=== PATIENT | female | born 1995 | race Caucasian/White ===

== ENCOUNTER 2018-07-13 12:42 | Emergency (ER) | payer MEDICAID ==
[2018-07-13 15:46] VITALS: BP 127/75
--- NOTE | 2018-07-13 16:46 | ED ---
Complex/Multi-Sys Presentation - HPI Summary HPI Summary: Patient is a 23 y/o F presenting to ED wanting medication for anxiety. She states that she moved to [place] three weeks ago from the [place] and is out of her anxiety medication. She reports that she used to be on lorazepam, now sertraline as lorazepam did not work. She states that she went to the [facility] and has an appointment in a month but cannot wait that long. PMHx of depression and anxiety. She states her PCP from [place] is unwilling to call in a prescription and that she cannot go back to the [place]. She states she tried to find another health center but reports the wait list is until September. On triage, pain is denied, medication is noted to alleviate Sx, nothing is reported to aggravate. Home medications and allergies are reviewed. Denies any SI, HI, visual or auditory hallucinations - History Of Current Complaint Chief Complaint: EDPsychosocial Time Seen by Provider: 07/13/18 13:16 Hx Obtained From: Patient Onset/Duration: Still Present Timing: Constant Severity Currently: None - pain denied Aggravating Factor(s): nothing Alleviating Factor(s): medications Associated Signs And Symptoms: Positive: Vomiting, Other - on triage, patient reports anxiety, vomiting, and tremors without her medications - Allergies/Home Medications Allergies/Adverse Reactions: Allergies Allergy/AdvReac Type Severity Reaction Status Date / Time No Known Allergies Allergy Verified 07/13/18 12:59 PMH/Surg Hx/FS Hx/Imm Hx Sensory History: Denies: Hx Legally Blind Opthamlomology History: Denies: Hx Legally Blind Psychiatric History: Reports: Hx Anxiety, Hx Depression Infectious Disease History: No Infectious Disease History: Denies: Traveled Outside the [place] in Last 30 Days - Family History Known Family History: Positive: Respiratory Disease - asthma - Social History Alcohol Use: None Substance Use Type: Reports: None Smoking Status (MU): Never Smoked Tobacco Review of Systems Positive: Other - tremors Positive: Vomiting Positive: Anxious All Other Systems Reviewed And Are Negative: Yes Physical Exam - Summary Physical Exam Summary: GENERAL: Patient is a well-developed and nourished female who is lying comfortable in the stretcher. Patient is not in any acute respiratory distress. HEAD AND FACE: Normocephalic EYES: PERRLA, EOMI x 2. EARS: Hearing grossly intact. MOUTH: Oropharynx within normal limits. NECK: Supple, trachea is midline, no adenopathy, no JVD, no carotid bruit. CHEST: Symmetric, no tenderness at palpation LUNGS: Clear to auscultation bilaterally. No wheezing or crackles. CVS: Regular rate and rhythm, S1 and S2 present, no murmurs or gallops appreciated. ABDOMEN: Soft, non-tender. Bowel sounds are normal. No abdominal abnormal pulsations. EXTREMITIES: Full ROM in all major joints, no edema, no cyanosis or clubbing. NEURO: Alert and oriented x 3. No acute neurological deficits. Speech is normal and follows commands. SKIN: Dry and warm Psych: No SI or HI, visual or auditory hallucinations, linear thought process and content Triage Information Reviewed: Yes Vital Signs On Initial Exam: Initial Vitals Temp Pulse Resp BP Pulse Ox 98.2 F 75 18 117/67 100 07/13/18 12:56 07/13/18 12:56 07/13/18 12:56 07/13/18 12:56 07/13/18 12:56 Vital Signs Reviewed: Yes Diagnostics - Vital Signs Vital Signs Temp Pulse Resp BP Pulse Ox 07/13/18 15:32 98.1 F 64 16 127/75 98 07/13/18 12:56 98.2 F 75 18 117/67 100 - Laboratory Lab Statement: Any lab studies that have been ordered have been reviewed, and results considered in the medical decision making process. Re-Evaluation - Re-Evaluation First Eval Re-Evaluation Time: 15:20 Comment: 1520 ED provider is uncomfortable with refilling patients anxiety medication, will be discharged to home and is advised to follow up with care clinic connections of [facility]. Nurse Ceferino Quinteros had called [facility] asking to see if patients appointment could be pushed up earlier. They report that patient and patients daughter were not in the system and did not have an appointment. Patient became uncooperative and wanted provider to write her a letter stating that she is unwilling to prescribe her psych meds. The providers unease with prescribing psych meds for one month was restated as well. However, patient is still unwilling to listen to explanation. Patient was provided with Joan Duarte number and email to provide a complaint if so desired. She was also given follow up instructions for [facility] which has openings this coming monday of which the patient was informed. Patient left at 1540. Complex Multi-Symp Course/Dx Course Of Treatment: Patient is a 23 y/o F presenting to ED wanting medication for anxiety. She states that she moved to [place] three weeks ago from the [place] and is out of her anxiety medication. She reports that she used to be on lorazepam, now sertraline as lorazepam did not work. She states that she went to the [facility] and has an appointment in a month but cannot wait that long. PMHx of depression and anxiety. She states her PCP from [place] is unwilling to call in a prescription and that she cannot go back to the [place]. She states she tried to find another health center but reports the wait list is until September. Physical exam was unremarkable. 1520 ED provider is uncomfortable with refilling patients anxiety medication, will be discharged to home and is advised to follow up with [facility] on Monday because there are openings. Nurse Ceferino Quinteros had called [facility] asking to see if patients appointment could be pushed up earlier. They report that patient and patients daughter were not in the system and she did not have an appointment. Patient became uncooperative and wanted provider to write her a letter stating that she is unwilling to prescribe her psych meds. The providers unease with prescribing psych meds for one month was restated as well. However, patient is still unwilling to listen to explanation. Patient was provided with Joan Duarte number and email to provide a complaint if so desired. She was also given follow up instructions for [facility]. She is hemodynamically stable and safe for discharge. Strict return precautions given as well. Patient left at 1540. Dx of psychosocial problem. - Diagnoses Provider Diagnoses: Psychosocial problem Discharge - Sign-Out/Discharge Documenting (check all that apply): Patient Departure - discharge - Discharge Plan Condition: Stable Disposition: HOME Patient Education Materials: Anxiety (ED) Referrals: [facility] [Outside] - 3 Days [facility] [Outside] Additional Instructions: Follow up with [facility] in 1-3 days. [facility] has open intake for adults Monday - 9:00 AM -3 : 30 PM and Monday 10:00 AM - 2:30 PM RETURN TO THE EMERGENCY DEPARTMENT FOR CHANGING OR WORSENING SYMPTOMS. - Billing Disposition and Condition Condition: STABLE Disposition: Home - Attestation Statements Document Initiated by Scribe: Yes Documenting Scribe: Pancho Martin Provider For Whom Jonatan is Documenting (Include Credential): Fidel Mustafa MD Scribe Attestation: Pancho Dawkins , scribed for Fidel Mustafa MD on 07/13/18 at 2105. Scribe Documentation Reviewed: Yes Provider Attestation: The documentation as recorded by the Pancho allen accurately reflects the service I personally performed and the decisions made by me, Fidel Mustafa MD
== END 2018-07-13 15:32 | disposition home or self-care (01) ==
LOC: ED 12:42
DX: R11.10 Vomiting, unspecified (principal); F41.9 Anxiety disorder, unspecified; Z65.9 Problem related to unspecified psychosocial circumstances
CPT/HCPCS: 99281

== ENCOUNTER → 2018-12-13 18:14 | Emergency (ER) | payer MEDICAID, OTHER ==
[~2018-12-13 18:14] MED LIST: Dexamethasone TAB* 4 MG PO ONE; Famotidine TAB* 20 MG PO ONE; diPHENhydraMINE PO* 50 MG PO ONE
--- NOTE | 2018-12-13 18:31 | ED ---
Complex/Multi-Sys Presentation - HPI Summary HPI Summary: Patient is a 23 y/o female brought in by EMS who presents to the ED c/o burning sensation. 3 days ago she began to have a burning and stinging sensation to her upper buttocks. Since then the sensation has radiated to her LLE, left arm, and left back. The sensation is now migrating to the right side. Patient denies any fever, drainage, rash, N/V/D, dysuria, or hematuria. She denies any pain. A few days ago she saw lights in her vision. Patient states that she feels like the sensation is inside. She has taken Allergra without relief. Patient notes she was recently started on Metyrapone for anxiety. She denies using any topical medications or herbal supplements. Patient denies any DM or HTN. - History Of Current Complaint Time Seen by Provider: 12/13/18 18:16 Hx Obtained From: Patient Onset/Duration: Gradual Onset, Lasting Days - 3, Worse Since Timing: Constant Location: Radiates To: - buttocks to legs, arms, back Aggravating Factor(s): Nothing Alleviating Factor(s): Nothing Associated Signs And Symptoms: Negative: Nausea, Vomiting, Diarrhea, Fever - Allergies/Home Medications Allergies/Adverse Reactions: Allergies Allergy/AdvReac Type Severity Reaction Status Date / Time No Known Allergies Allergy Verified 12/13/18 18:26 PMH/Surg Hx/FS Hx/Imm Hx Endocrine/Hematology History: Denies: Hx Diabetes, Hx Thyroid Disease Cardiovascular History: Denies: Hx Hypertension - Surgical History Surgery Procedure, Year, and Place: sleeve gastrectomy Infectious Disease History: No Infectious Disease History: Denies: Traveled Outside the [place] in Last 30 Days - Family History Known Family History: Positive: Cardiac Disease, Diabetes, Respiratory Disease - asthma , Other - FMHx of [place] - Social History Alcohol Use: Occasionally Hx Substance Use: No Substance Use Type: Reports: None Hx Tobacco Use: No Smoking Status (MU): Never Smoked Tobacco Review of Systems Negative: Fever Positive: Other - lights in her vision Negative: Vomiting, Diarrhea, Nausea Negative: dysuria, hematuria Negative: Rash, Other - drainage Neurological: Other - burning/stinging sensation buttocks, legs, arms, back All Other Systems Reviewed And Are Negative: Yes Physical Exam - Summary Physical Exam Summary: Appearance: Well appearing, no pain distress Skin: warm, dry, reflects adequate perfusion, hyperesthesia on left side Head/face: normal Eyes: EOMI, GLO ENT: mucous membranes moist Neck: supple, non-tender Respiratory: CTA, breath sounds present Cardiovascular: RRR, pulses symmetrical Abdomen: non-tender, soft Bowel Sounds: present Musculoskeletal: normal, strength/ROM intact Neuro: normal, sensory motor intact, A&Ox3 Triage Information Reviewed: Yes Vital Signs On Initial Exam: Initial Vitals Temp Pulse Resp BP Pulse Ox 97.8 F 70 16 137/85 100 12/13/18 18:18 12/13/18 18:18 12/13/18 18:18 12/13/18 18:18 12/13/18 18:18 Vital Signs Reviewed: Yes Diagnostics - Vital Signs Vital Signs Temp Pulse Resp BP Pulse Ox 12/13/18 18:18 97.8 F 70 16 137/85 100 - Laboratory Result Diagrams: 12/13/18 19:00 12/13/18 19:00 Lab Statement: Any lab studies that have been ordered have been reviewed, and results considered in the medical decision making process. Re-Evaluation - Re-Evaluation First Eval Re-Evaluation Time: 18:40 Change: Unchanged Comment: Pt told nurse Leilani she is actually taking Sertraline instead of Metyrapone. Second Eval Re-Evaluation Time: 19:30 Change: Unchanged Comment: Pt feels the same. She states she had fillers injected in her buttocks. Complex Multi-Symp Course/Dx Course Of Treatment: Nurse's notes reviewed. Patient with a burning hyperesthesia of the entire left side of her body now crossing midline and involving portions of the back of her right side. She is not on any new medications and has no rheumatologic conditions. She is not known to have any complex regional pain syndromes or fibromyalgia. She is very benign appearing with no findings on exam otherwise. She is neurologically intact. Laboratories are all benign. She was given steroids, Benadryl and Pepcid here without any improvement. She'll follow up closely with her primary care physician. - Diagnoses Differential Diagnoses/HQI/PQRI: Metabolic Abnormality, Other - Complex regional pain syndrome, rheumatologic condition, medication reaction to Zoloft Provider Diagnoses: Hyperesthesia Discharge - Sign-Out/Discharge Documenting (check all that apply): Patient Departure - Discharge Patient Received Moderate/Deep Sedation with Procedure: No - Discharge Plan Condition: Improved Disposition: HOME Prescriptions: Dexamethasone TAB* [Decadron TAB*] 8 mg PO DAILY #8 tab Patient Education Materials: Paresthesia (ED) Referrals: Arianna Brooke DO [Primary Care Provider] - Additional Instructions: HOLD your next dose of sertraline/Zoloft. This may be causing her symptoms. Otherwise, there is possibility of rheumatologic condition that can be worked up by your doctor. Return if worse, new symptoms or other concerns as discussed. - Billing Disposition and Condition Condition: IMPROVED Disposition: Home - Attestation Statements Document Initiated by Jonatan: Yes Documenting Scribe: Sana Cooper Provider For Whom Jonatan is Documenting (Include Credential): Eric Gutierres MD Scribe Attestation: Sana Dawkins, scribed for Eric Gutierres MD on 12/13/18 at 2125. Scribe Documentation Reviewed: Yes Provider Attestation: The documentation as recorded by the Sana allen accurately reflects the service I personally performed and the decisions made by Eric bravo MD Status of Scribe Document: Viewed
[2018-12-13 19:07] LABS: ABS Basophils 0 10^3/ul (0-0.2); ABS Eosinophils 0.1 10^3/ul (0-0.6); ABS Lymphocytes 2.3 10^3/ul (1.0-4.8); ABS Monocytes 0.4 10^3/ul (0-0.8); ABS Neutrophils 3.8 10^3/ul (1.5-7.7); ABS Nucleated RBC 0 10^3/ul; Eosinophil % 2.1 %; Hematocrit 33 % (33-41); Hemoglobin 11.5 g/dL (12.0-16.0); Lymphocyte % 34.6 %; Mean Corpuscular HGB Conc 34 g/dL (31-36); Mean Corpuscular Hemoglobin 30 pg (27-31); Mean Corpuscular Volume 86 fL (80-97); Mean Platelet Volume 7.7 fL (7.4-10.4); Nucleated Red Blood Cells % 0; Platelet Count 210 10^3/uL (150-450); Red Cell Distribution Width 13 % (10.5-15); White Blood Count 6.7 10^3/uL (3.5-10.8)
[2018-12-13 19:21] LABS: BUN/Creatinine Ratio 11.1 (8-20); C Reactive Protein 1.12 mg/L (<8.01); Calcium 8.9 mg/dL (8.6-10.3); EGFR African American 121.5 (>60); EGFR Non-African American 100.4 (>60); Potassium 3.9 mmol/L (3.5-5.0)
[2018-12-13 19:44] VITALS: BP 125/78
== END | disposition home or self-care (01) ==
LOC: MERGE 18:14 → ED 18:14
DX: R20.3 Hyperesthesia (principal)
CPT/HCPCS: 36415; 80048; 82550; 85025; 86140; 99283; A9270-GY; J8540

== ENCOUNTER 2018-12-15 21:16 | Emergency (ER) | payer MEDICAID, OTHER ==
--- NOTE | 2018-12-15 21:51 | ED ---
Complex/Multi-Sys Presentation - HPI Summary HPI Summary: This patient is a 23 year old F presenting to [facility] with a chief complaint of a burning sensation over the left side of her body for the past two days with mild swelling of her left arm today. Patient reports being seen in the ED yesterday and was given a prescription for steroids and antihistamines. Reports headaches for the past 2 days . Denies fever, chest pain, SOB, GI and urinary symptoms. LN end of October early November; patient reports irregularity and is not concerned for . - History Of Current Complaint Chief Complaint: EDGeneral Time Seen by Provider: 12/15/18 21:46 Hx Obtained From: Patient Onset/Duration: Lasting Days Timing: Constant Severity Currently: Mild Severity Initially: Mild Aggravating Factor(s): nothing Alleviating Factor(s): nothing - Allergies/Home Medications Allergies/Adverse Reactions: Allergies Allergy/AdvReac Type Severity Reaction Status Date / Time No Known Allergies Allergy Verified 12/15/18 21:21 PMH/Surg Hx/FS Hx/Imm Hx Sensory History: Denies: Hx Legally Blind Opthamlomology History: Denies: Hx Legally Blind EENT History: Denies: Hx Deafness Psychiatric History: Reports: Hx Anxiety, Hx Depression - Surgical History Surgery Procedure, Year, and Place: none reported. Infectious Disease History: No Infectious Disease History: Denies: Traveled Outside the [place] in Last 30 Days - Family History Known Family History: Positive: Respiratory Disease - asthma - Social History Alcohol Use: None Substance Use Type: Reports: None Smoking Status (MU): Never Smoked Tobacco Review of Systems Positive: Other - left sided burning . Negative: Fever Negative: Chest Pain Negative: Shortness Of Breath Gastrointestinal: Negative Positive: no symptoms reported Positive: Headache All Other Systems Reviewed And Are Negative: Yes Physical Exam - Summary Physical Exam Summary: Appearance: Well-appearing, Well-nourished, lying in bed comfortable Skin: Warm, dry, no obvious rash Eyes: sclera anicteric, no conjunctival pallor ENT: mucous membranes moist Neck: deferred Respiratory: No signs of respiratory distress Cardiovascular: Appears well perfused, pulses are nml Abdomen: deferred Musculoskeletal: Moving all 4 extremities without obvious discomfort Neurological: Awake and alert, mentation is normal, speech is fluent and appropriate Psychiatric: affect is normal, does not appear anxious or depressed Triage Information Reviewed: Yes Vital Signs On Initial Exam: Initial Vitals Temp Pulse Resp BP Pulse Ox 97.9 F 71 16 115/75 100 12/15/18 21:20 12/15/18 21:20 12/15/18 21:20 12/15/18 21:20 12/15/18 21:20 Vital Signs Reviewed: Yes Diagnostics - Vital Signs Vital Signs Temp Pulse Resp BP Pulse Ox 12/15/18 21:20 97.9 F 71 16 115/75 100 - Laboratory Result Diagrams: 12/15/18 22:03 12/15/18 22:03 Lab Statement: Any lab studies that have been ordered have been reviewed, and results considered in the medical decision making process. Complex Multi-Symp Course/Dx Course Of Treatment: 23 year old F c/o burning sensation over the left side of her body for the past two days with mild swelling of her left arm today. Patient reports being seen in the ED yesterday and was given a prescription for steroids and antihistamines. Bloodwork and UA obtained revealing glucose of 60 and hgb 11.9, but is otherwise normal. Results discussed with patient, she is instructed to follow up with her PCP regarding her symptoms. - Diagnoses Provider Diagnoses: Paresthesia and pain of both upper extremities Discharge - Sign-Out/Discharge Documenting (check all that apply): Patient Departure - discharge Patient Received Moderate/Deep Sedation with Procedure: No - Discharge Plan Condition: Good Disposition: HOME Patient Education Materials: Paresthesia (ED) Referrals: [facility] [Outside] Artemio Glass MD [Medical Doctor] - Additional Instructions: The cause of your symptoms is unclear at present, but there does not seem to be anything emergent at present. Make an appt with a primary care physician if you can this week. Alternatively a neurologist may be able to diagnose your problem. - Billing Disposition and Condition Condition: GOOD Disposition: Home - Attestation Statements Document Initiated by Scribe: Yes Documenting Scribe: Jennifer Aguero Provider For Whom Jonatan is Documenting (Include Credential): James Beyer MD Scribe Attestation: Jennifer Dawkins, scribed for James Beyer MD on 12/15/18 at 2333. Scribe Documentation Reviewed: Yes Provider Attestation: The documentation as recorded by the Jennifer allen accurately reflects the service I personally performed and the decisions made by me, James Beyer MD Status of Scribe Document: Viewed
[2018-12-15 22:09] LABS: ABS Basophils 0.1 10^3/ul (0-0.2); ABS Eosinophils 0.2 10^3/ul (0-0.6); ABS Monocytes 0.4 10^3/ul (0-0.8); ABS Neutrophils 3.5 10^3/ul (1.5-7.7); ABS Nucleated RBC 0 10^3/ul; Eosinophil % 2.8 %; Hematocrit 35 % (33-41); Hemoglobin 11.9 g/dL (12.0-16.0); Lymphocyte % 41.6 %; Mean Corpuscular HGB Conc 34 g/dL (31-36); Mean Corpuscular Hemoglobin 29 pg (27-31); Mean Corpuscular Volume 87 fL (80-97); Nucleated Red Blood Cells % 0; Platelet Count 235 10^3/uL (150-450); Red Blood Count 4.04 10^6 /uL (3.70-4.87); Red Cell Distribution Width 14 % (10.5-15); White Blood Count 7.3 10^3/uL (3.5-10.8)
[2018-12-15 22:26] LABS: Albumin 4.2 g/dL (3.2-5.2); Anion Gap 5 mmol/L (2-11); BUN/Creatinine Ratio 12.3 (8-20); Blood Urea Nitrogen 9 mg/dL (6-24); CO2 Carbon Dioxide 28 mmol/L (22-32); Calcium 8.9 mg/dL (8.6-10.3); Chloride 105 mmol/L (101-111); EGFR African American 119.5 (>60); EGFR Non-African American 98.8 (>60); Glucose 60 mg/dL (70-100); Sodium 138 mmol/L (135-145); Total Protein 6.6 g/dL (6.4-8.9)
[2018-12-15 22:27] LABS: ALT 10 U/L (7-52); AST 16 U/L (13-39); Albumin/Globulin Ratio 1.8 (1-3); Alkaline Phosphatase 57 U/L (34-104); C Reactive Protein 1.16 mg/L (<8.01); Globulin 2.4 g/dL (2-4)
[2018-12-15 22:34] LABS: HCG Pregnancy < 0.60 mIU/mL
[2018-12-15 22:45] LABS: Urine Appearance Turbid; Urine Bilirubin Negative (Negative); Urine Blood Negative (Negative); Urine Color Yellow; Urine Glucose Negative (Negative); Urine Ketones Negative (Negative); Urine Nitrite Negative (Negative); Urine Protein Negative (Negative); Urine Specific Gravity 1.021 (1.010-1.030); Urine Urobilinogen Negative (Negative)
[2018-12-15 22:47] LABS: TSH (Thyroid Stimulating Horm) 1.17 mcIU/mL (0.34-5.60)
[2018-12-15 23:25] VITALS: BP 120/78
== END 2018-12-15 23:24 | disposition home or self-care (01) ==
LOC: ED 21:16
DX: R20.2 Paresthesia of skin (principal); R51 Headache
CPT/HCPCS: 36415; 80053; 81003; 84443; 84702; 85025; 86140; 99283

== ENCOUNTER 2019-02-23 16:48 | Emergency (ER) | payer OTHER ==
--- NOTE | 2019-02-23 19:13 | ED ---
Complex/Multi-Sys Presentation - HPI Summary HPI Summary: This patient is a 23 year old F presenting to [facility] with multiple complaints including increase fatigue, reflux, muscle spasms, joint pain, and a constant headache behind the eyes for the past two weeks. Headaches unresolved with Ibuprofen, hydration, and massage. She reports increased fatigue after meals. Denies fever and chills. Reports 100 pound weight loss this past year s/p gastric sleeve. She reports a history of depression first diagnosed at age 10. Patient started Prozac two days ago. Denies history of HIV and lupus. - History Of Current Complaint Chief Complaint: EDHeadache Time Seen by Provider: 02/23/19 18:43 Hx Obtained From: Patient Onset/Duration: Lasting Weeks Timing: Constant Location: Pain At: - headache Aggravating Factor(s): eating Alleviating Factor(s): nothing Associated Signs And Symptoms: Positive: Weakness, Headache, Nausea, Other - fatigue, muscle spasms and joint pain. Negative: Fever - Allergies/Home Medications Allergies/Adverse Reactions: Allergies Allergy/AdvReac Type Severity Reaction Status Date / Time No Known Allergies Allergy Verified 02/23/19 16:57 Home Medications: Home Medications FLUoxetine CAP* [Prozac CAP*] 20 mg PO DAILY 02/23/19 [History Confirmed ] Sertraline* [Zoloft*] 100 mg PO DAILY 02/23/19 [History Confirmed 02/23/19] PMH/Surg Hx/FS Hx/Imm Hx Endocrine/Hematology History: Denies: Hx Diabetes, Hx Thyroid Disease Cardiovascular History: Denies: Hx Hypertension Sensory History: Denies: Hx Legally Blind, Hx Deafness Opthamlomology History: Denies: Hx Legally Blind Psychiatric History: Reports: Hx Anxiety, Hx Depression - Surgical History Surgery Procedure, Year, and Place: sleeve gastrectomy Infectious Disease History: No Infectious Disease History: Denies: Traveled Outside the [place] in Last 30 Days - Family History Known Family History: Positive: Cardiac Disease, Diabetes, Respiratory Disease - asthma , Other - FMHx of [place] - Social History Alcohol Use: Occasionally Hx Substance Use: No Substance Use Type: Reports: None Hx Tobacco Use: No Smoking Status (MU): Never Smoked Tobacco Review of Systems Positive: Fatigue. Negative: Fever, Chills Positive: Other - muscle spasm and joint pain Positive: Headache All Other Systems Reviewed And Are Negative: Yes Physical Exam - Summary Physical Exam Summary: GENERAL: Patient is a well-developed and nourished F who is lying comfortable in the stretcher. Patient is not in any acute respiratory distress. HEAD AND FACE: Normocephalic EYES: PERRLA, EOMI x 2. EARS: Hearing grossly intact. MOUTH: Oropharynx within normal limits. NECK: Supple, trachea is midline, no adenopathy, no JVD, no carotid bruit. CHEST: Symmetric, no tenderness at palpation LUNGS: Clear to auscultation bilaterally. No wheezing or crackles. CVS: Regular rate and rhythm, S1 and S2 present, no murmurs or gallops appreciated. ABDOMEN: Soft, non-tender. Bowel sounds are normal. No abnormal abdominal pulsations. EXTREMITIES: Full ROM in all major joints, no edema, no cyanosis or clubbing. NEURO: Alert and oriented x 3. No acute neurological deficits. Speech is normal and follows commands. SKIN: Dry and warm Triage Information Reviewed: Yes Vital Signs On Initial Exam: Initial Vitals Temp Pulse Resp BP Pulse Ox 97.8 F 80 14 113/84 98 02/23/19 16:52 02/23/19 16:52 02/23/19 16:52 02/23/19 16:52 02/23/19 16:52 Vital Signs Reviewed: Yes Diagnostics - Vital Signs Vital Signs Temp Pulse Resp BP Pulse Ox 02/23/19 18:52 71 18 98 02/23/19 18:46 70 148/94 99 02/23/19 16:52 97.8 F 80 14 113/84 98 - Laboratory Result Diagrams: 02/23/19 19:44 02/23/19 19:44 Lab Statement: Any lab studies that have been ordered have been reviewed, and results considered in the medical decision making process. - Radiology CXR Radiology Interpretation Completed By: ED Physician Summary of Radiographic Findings: No acute processes. - EKG 194 Cardiac Rate: NL - 60 BPM EKG Rhythm: Sinus Rhythm Summary of EKG Findings: Nml interval. Complex Multi-Symp Course/Dx Course Of Treatment: 23 year old F presenting to [facility] with multiple complaints including increase fatigue, reflux, muscle spasms, joint pain, and a constant headache behind the eyes for the past two weeks. Bloodwork reveals 11.7 hgb and 5.44 thyroxine but is otherwise normal. Patient is given IV fluids, 10mg reglan and 25mg of benadryl. CXR is negative for acute processes. Patient reports improved headache. I discussed results with patient, and she reports feeling better. She is hemodynamically stable and safe for discharge. Strict return precautions given and she will otherwise follow up with her PCP. - Diagnoses Provider Diagnoses: Malaise Discharge - Sign-Out/Discharge Documenting (check all that apply): Patient Departure - discharged Patient Received Moderate/Deep Sedation with Procedure: No - Discharge Plan Condition: Stable Disposition: HOME Patient Education Materials: Fatigue (ED) Referrals: Arianna Brooke DO [Primary Care Provider] - 2 Days Additional Instructions: RETURN TO THE EMERGENCY DEPARTMENT FOR CHANGING OR WORSENING SYMPTOMS. - Billing Disposition and Condition Condition: STABLE Disposition: Home - Attestation Statements Document Initiated by Jonatan: Yes Documenting Scribe: Jennifer Aguero Provider For Whom Jonatan is Documenting (Include Credential): Fidel Mustafa MD Scribe Attestation: I, Jennifer Aguero, scribed for Fidel Mustafa MD on 02/26/19 at 1250. Scribe Documentation Reviewed: Yes Provider Attestation: The documentation as recorded by the Jennifer allen accurately reflects the service I personally performed and the decisions made by me, Fidel Mustafa MD Status of Scribe Document: Viewed
[2019-02-23] MEDS ORDERED: NS 0.9% 1000 ML** 1,000 ML IV ONE (19:21)
[2019-02-23] MEDS ORDERED: diPHENhydraMINE IV* 50 MG/ML 1 ml VIAL (BENADRYL) IV ONE (19:21)
[2019-02-23] MEDS ORDERED: Metoclopramide IV* 5 MG/ML 2 ML VIAL IV ONE (19:21)
[2019-02-23 20:02] LABS: ABS Basophils 0.1 10^3/ul (0-0.2); ABS Eosinophils 0.2 10^3/ul (0-0.6); ABS Lymphocytes 2.8 10^3/ul (1.0-4.8); ABS Monocytes 0.5 10^3/ul (0-0.8); ABS Neutrophils 4.5 10^3/ul (1.5-7.7); Eosinophil % 2.7 %; Hematocrit 35 % (35-47); Hemoglobin 11.7 g/dL (12.0-16.0); Mean Corpuscular HGB Conc 34 g/dL (31-36); Mean Corpuscular Hemoglobin 29 pg (27-31); Mean Corpuscular Volume 85 fL (80-97); Nucleated Red Blood Cells % 0.1; Platelet Count 255 10^3/uL (150-450); Red Cell Distribution Width 14 % (10.5-15); White Blood Count 8.1 10^3/uL (3.5-10.8)
[2019-02-23 20:08] LABS: Activated Partial Thrombo Time 33.2 seconds (26.0-38.0); INR 1.01 (0.82-1.09)
[2019-02-23 20:19] LABS: ALT 9 U/L (7-52); AST 15 U/L (13-39); Albumin 4.4 g/dL (3.2-5.2); Albumin/Globulin Ratio 1.8 (1-3); Alkaline Phosphatase 37 U/L (34-104); Anion Gap 4 mmol/L (2-11); Blood Urea Nitrogen 10 mg/dL (6-24); CO2 Carbon Dioxide 27 mmol/L (22-32); Calcium 9.4 mg/dL (8.6-10.3); Chloride 107 mmol/L (101-111); EGFR African American 112.4 (>60); EGFR Non-African American 92.9 (>60); Globulin 2.4 g/dL (2-4); Glucose 87 mg/dL (70-100); Potassium 4.5 mmol/L (3.5-5.0); Sodium 138 mmol/L (135-145); Total Protein 6.8 g/dL (6.4-8.9)
[2019-02-23 20:26] LABS: HCG Pregnancy < 0.60 mIU/mL
[2019-02-23 20:54] LABS: T4, Total 5.44 mcg/dL (6.09-12.23)
[2019-02-23 20:56] LABS: TSH (Thyroid Stimulating Horm) 0.79 mcIU/mL (0.34-5.60)
[2019-02-23 21:00] LABS: C Reactive Protein < 1.00 mg/L (<8.01)
[2019-02-23 21:07] LABS: Folate 10.33 ng/mL (>3.99)
[2019-02-23 21:33] VITALS: BP 121/76
== END 2019-02-23 21:33 | disposition home or self-care (01) ==
LOC: ED 16:48
DX: R53.81 Other malaise (principal); F41.9 Anxiety disorder, unspecified; F32.9 Major depressive disorder, single episode, unspecified; Z98.84 Bariatric surgery status
CPT/HCPCS: 36415; 71046; 80053; 82607; 82746; 83605; 83735; 83880; 84436; 84443; 84484; 84702; 85025; 85610; 85730; 86140; 93005; 96361; 96374; 96375; 99283; J1200; J2765

== ENCOUNTER → 2019-02-27 15:44 | Emergency (ER) | payer OTHER ==
[~2019-02-27 15:44] MED LIST changes: -Dexamethasone TAB* 4 MG PO ONE; -Famotidine TAB* 20 MG PO ONE; +NS 0.9% 1000 ML** 1,000 ML IV ONE; -diPHENhydraMINE PO* 50 MG PO ONE
[2019-02-27 15:58] VITALS: BP 115/86
--- NOTE | 2019-02-27 18:09 | ED ---
Influenza-Like Illness - HPI Summary HPI Summary: Patient complains of headache, body aches, neck pain 2 weeks. Patient is been seen here 02/23/19 for similar symptoms, has also since been evaluated by primary care with multiple labs drawn for autoimmune disease. Patient prescribed naproxen 250 mg twice a day and Flexeril 10 mg at night by PCP. Patient denies any new symptoms, states she is here because she wants an "MRI". Denies fever, photophobia, sore throat, cough, CP, SOB, N/V/D, abdominal pain, change in urine , vaginal symptoms. Medical history is none. - History of Current Complaint Chief Complaint: EDHeadache Time Seen by Provider: 02/27/19 17:39 Hx Obtained From: Patient Onset/Duration: Gradual Onset, Lasting Weeks Severity: Moderate Associated Signs & Symptoms: Myalgia, Headache - Allergy/Home Medications Allergies/Adverse Reactions: Allergies Allergy/AdvReac Type Severity Reaction Status Date / Time No Known Allergies Allergy Verified 02/23/19 16:57 PMH/Surg Hx/FS Hx/Imm Hx Endocrine/Hematology History: Denies: Hx Diabetes, Hx Thyroid Disease Cardiovascular History: Denies: Hx Hypertension History: Denies: Hx Dialysis Sensory History: Denies: Hx Legally Blind, Hx Deafness Opthamlomology History: Denies: Hx Legally Blind EENT History: Denies: Hx Deafness Neurological History: Denies: Hx Dementia Psychiatric History: Reports: Hx Anxiety, Hx Depression - Surgical History Surgery Procedure, Year, and Place: sleeve gastrectomy Infectious Disease History: No Infectious Disease History: Denies: Traveled Outside the [place] in Last 30 Days - Family History Known Family History: Positive: Cardiac Disease, Diabetes, Respiratory Disease - asthma , Other - FMHx of [place] - Social History Alcohol Use: Occasionally Hx Substance Use: No Substance Use Type: Reports: None Hx Tobacco Use: No Smoking Status (MU): Never Smoked Tobacco Review of Systems Constitutional: Negative Eyes: Negative ENT: Negative Cardiovascular: Negative Respiratory: Negative Gastrointestinal: Negative Genitourinary: Negative Positive: Myalgia Skin: Negative Positive: Headache Psychological: Normal All Other Systems Reviewed And Are Negative: Yes Physical Exam - Summary Physical Exam Summary: Full range of motion of neck. Tenderness to palpation along bilateral sternocleidomastoid muscles and trapezius muscles. ENT exam unremarkable. Lung sounds clear to auscultation bilaterally. Abdomen soft nontender. RRR. Triage Information Reviewed: Yes Vital Signs On Initial Exam: Initial Vitals Temp Pulse Resp BP Pulse Ox 97.2 F 80 18 115/86 99 02/27/19 15:54 02/27/19 15:54 02/27/19 15:54 02/27/19 15:54 02/27/19 15:54 Vital Signs Reviewed: Yes Appearance: Positive: Well-Appearing Skin: Positive: Warm Head/Face: Positive: Normal Head/Face Inspection Eyes: Positive: Normal ENT: Positive: Normal ENT inspection Neck: Positive: Supple Respiratory/Lung Sounds: Positive: Clear to Auscultation Cardiovascular: Positive: Normal Abdomen Description: Positive: Nontender Musculoskeletal: Positive: Normal Neurological: Positive: Normal Psychiatric: Positive: Normal AVPU Assessment: Alert - [place] Coma Scale Best Eye Response: 4 - Spontaneous Best Motor Response: 6 - Obeys Commands Best Verbal Response: 5 - Oriented Coma Scale Total: 15 Diagnostics - Vital Signs Vital Signs Temp Pulse Resp BP Pulse Ox 02/27/19 15:54 97.2 F 80 18 115/86 99 - Laboratory Lab Statement: Any lab studies that have been ordered have been reviewed, and results considered in the medical decision making process. Flu Symptom Course/Dx - Course Course Of Treatment: Patient complains of headache, body aches, neck pain 2 weeks. Patient is been seen here 02/23/19 for similar symptoms, has also since been evaluated by primary care with multiple labs drawn for autoimmune disease. Patient prescribed naproxen 250 mg twice a day and Flexeril 10 mg at night by PCP. Patient denies any new symptoms, states she is here because she wants an "MRI". Denies fever, photophobia, sore throat, cough, CP, SOB, N/V/D, abdominal pain, change in urine, vaginal symptoms. Medical history is none. Physical exam:Full range of motion of neck. Tenderness to palpation along bilateral sternocleidomastoid muscles and trapezius muscles. ENT exam unremarkable. Lung sounds clear to auscultation bilaterally. Abdomen soft nontender. RRR. Vital signs within normal limits. Patient refused to put on a hospital gown. Refused labs. Refused treatment offered for headache. Patient insisting on MRI, and when told imaging was not indicated at this time insisted on leaving. Patient agreed to sign out AMA. Advised to follow-up with primary care and to return to the ED for any new or worsening symptoms. - Diagnoses Provider Diagnoses: Flu-like symptoms Discharge - Sign-Out/Discharge Documenting (check all that apply): Patient Departure Patient Received Moderate/Deep Sedation with Procedure: No - Discharge Plan Condition: Stable Disposition: AGAINST MEDICAL ADVICE Patient Education Materials: Acute Headache (ED) Referrals: Arianna Brooke DO [Primary Care Provider] - Additional Instructions: Follow-up with primary care. Return to the ED for any new or worsening symptoms. - Billing Disposition and Condition Condition: STABLE Disposition: Against Medical Advice
== END | disposition left against medical advice (07) ==
LOC: ED 15:44
DX: R68.89 Other general symptoms and signs (principal)
CPT/HCPCS: 96360; 99282

== ENCOUNTER 2019-07-09 14:53 | Emergency (ER) | payer OTHER ==
[2019-07-09] MEDS ORDERED: Lidocaine 1% MPF ** 5 ML VIAL INJ ONE (16:05)
--- NOTE | 2019-07-09 16:07 | ED ---
Skin Complaint - HPI Summary HPI Summary: Pt. is a 24 y.o female who presents to the ER for wound to left upper thigh x 3 days. Pt. states a few days ago she woke up with a wound to her left upper thigh. She assumes she was bit by an insect in her sleep. Pt. states area has progressively become larger and the wound center has become larger with drainage. Pt. denies past hx. Denies fever. Touching area makes sxs worse. Nothing makes sxs better. Sxs are mild in severity. - History of Current Complaint Chief Complaint: EDSoftTissueLowExtr Time Seen by Provider: 07/09/19 15:17 Stated Complaint: SKIN ISSUE PER PT Hx Obtained From: Patient Hx Last Menstrual Period: 08/15/18, bled a few days in Aug 2018 Pain Intensity: 8 - Allergy/Home Medications Allergies/Adverse Reactions: Allergies Allergy/AdvReac Type Severity Reaction Status Date / Time No Known Allergies Allergy Verified 07/09/19 15:40 PMH/Surg Hx/FS Hx/Imm Hx Previously Healthy: Yes Endocrine/Hematology History: Denies: Hx Diabetes, Hx Thyroid Disease Cardiovascular History: Denies: Hx Hypertension History: Denies: Hx Dialysis Sensory History: Denies: Hx Legally Blind, Hx Deafness Opthamlomology History: Denies: Hx Legally Blind Neurological History: Denies: Hx Dementia Psychiatric History: Reports: Hx Anxiety, Hx Depression - Surgical History Surgery Procedure, Year, and Place: sleeve gastrectomy Infectious Disease History: No Infectious Disease History: Denies: Traveled Outside the [place] in Last 30 Days - Family History Known Family History: Positive: Cardiac Disease, Diabetes, Respiratory Disease - asthma , Other - FMHx of [place] - Social History Occupation: Employed Full-time Lives: With Family Alcohol Use: Occasionally Hx Substance Use: No Substance Use Type: Reports: None Hx Tobacco Use: No Smoking Status (MU): Never Smoked Tobacco Review of Systems Constitutional: Negative Positive: Other - painful wound to left upper leg. Neurological: Negative All Other Systems Reviewed And Are Negative: Yes Physical Exam Triage Information Reviewed: Yes Vital Signs On Initial Exam: Initial Vitals Temp Pulse Resp BP Pulse Ox 98.1 F 72 18 125/65 100 07/09/19 14:57 07/09/19 14:57 07/09/19 14:57 07/09/19 14:57 07/09/19 14:57 Vital Signs Reviewed: Yes Appearance: Positive: Well-Appearing - Pt. lying on bed in NAD> Skin: Positive: Warm, Dry, Other - Noted to the left upper lateral leg there is a roughly 5 cm in diameter area of edema and pain. In the center is a 1cm open wound with purulent drainage. Head/Face: Positive: Normal Head/Face Inspection Eyes: Positive: Normal, EOMI Musculoskeletal: Positive: Normal, Strength/ROM Intact Neurological: Positive: Normal, CN Intact II-III Psychiatric: Positive: Affect/Mood Appropriate Procedures - Sedation Patient Received Moderate/Deep Sedation with Procedure: No - Incision and Drainage Left Upper Leg Instrument(s): Other - wound center was debrided Packing: Gauze Diagnostics - Vital Signs Vital Signs Temp Pulse Resp BP Pulse Ox 07/09/19 14:57 98.1 F 72 18 125/65 100 - Laboratory Lab Statement: Any lab studies that have been ordered have been reviewed, and results considered in the medical decision making process. Course/Dx - Course Course Of Treatment: Pt. with wound infection/abscess to left upper leg. Afebrile and well appearing. Wound was debrided, cleaned and packed. Wound culture obtained. WIll tx pt. with clindamycin. Advised to see pcp in 48 hours for packing change and wound check. Small rx of lortab given for pain. TO return to ER for fever, increased redness, swelling. Pt. understands and agrees with plan. - Differential Diagnoses - Skin Complaint Differential Diagnoses: Abscess, Cellulitis, MRSA - Diagnoses Provider Diagnoses: Abscess Discharge ED - Sign-Out/Discharge Documenting (check all that apply): Patient Departure - Discharge Plan Condition: Good Disposition: HOME Prescriptions: Clindamycin Cap(NF) [Clindamycin Cap 300 mg Cap(NF)] 300 mg PO Q6H #40 cap HYDROcodone/ACETAMIN 5-325 MG* [[place] 5-325 TAB*] 1 tab PO Q6H PRN #8 tab MDD 4 PRN Reason: Pain - Moderate Patient Education Materials: Abscess (ED) Referrals: Arianna Brooke DO [Primary Care Provider] - Additional Instructions: Please see your PCP in two days, , for wound check Take antibiotic as directed Apply warm compresses Return to ER for fever, increased redness, swelling, pain, or if concerned - Billing Disposition and Condition Condition: GOOD Disposition: Home
[2019-07-09] MEDS ORDERED: HYDROcodone/ACETAMIN 5-325 MG* 1 TAB PO ONE (17:24)
[2019-07-09] MEDS ORDERED: Clindamycin CAP* 150 MG PO ONE (17:24)
[2019-07-09 17:47] VITALS: BP 121/82
--- NOTE | 2019-07-10 06:58 | ED ---
Imaging and Labs Follow Up Follow Up Type: Labs/Cultures Labs/Culture Result: wound culture left thigh grew staph aureus positive, negative MRSA Patient Communication/Plan: Patient was placed on clindamycin prior to discharge, this is likely sensitive to organism Nothing further is required
== END 2019-07-09 17:45 | disposition home or self-care (01) ==
LOC: ED 14:53
DX: L02.416 Cutaneous abscess of left lower limb (principal); F41.9 Anxiety disorder, unspecified; F32.9 Major depressive disorder, single episode, unspecified; Z98.84 Bariatric surgery status; Z79.899 Other long term (current) drug therapy
CPT/HCPCS: 10060; 87070; 87077; 87186; 87205; 87640; 87641; 99282; A9270-GY